=== PATIENT | female | born 1950 | race Caucasian/White ===

== ENCOUNTER 2022-01-22 10:32 | Outpatient (CLI) | payer MEDICARE, BC, SELFPAY ==
--- NOTE | 2022-01-22 11:00 | CRLHL7_ITS ---
For Patients: As a result of the Century Cures Act, medical imaging exams and procedure reports are released immediately into your electronic medical record. You may view this report before your referring provider. If you have questions, please contact your health care provider. Indication: Technique: Performed without IV contrast Comparison: None available Findings: Frontal sinuses: Clear. Ethmoid sinuses: Clear. Maxillary sinuses: Mucous retention cyst measuring 1.4 cm within the right maxillary sinus. Mild mucosal thickening within both maxillary sinuses. The maxillary sinus drainage pathways are patent on both sides. Sphenoid sinuses: Clear, including both sphenoethmoidal recesses. Nasal Cavity: Slight curvature of the nasal septum. No nasal polyps. Degenerative changes at the temporomandibular joints. Clear mastoid air cells. Incidental prefrontal scalp soft tissue calcifications. Impression: 1. Mild bilateral maxillary sinus disease. 2. Patent sinus drainage pathways bilaterally. Please note that all CT scans at this facility use dose modulation, iterative reconstruction, and/or weight-based dosing when appropriate to reduce radiation dose to as low as reasonably achievable. Dictated by Mando Miller MD @ 01/22/2022 12:25:19 PM (Electronically Signed)
== END 2022-01-22 10:33 | disposition home or self-care (01) ==
LOC: CT 10:34
PROVIDERS: Visit Provider Otolaryngology
DX: J32.9 Chronic sinusitis, unspecified (principal); J32.0 Chronic maxillary sinusitis
CPT/HCPCS: 70486

== ENCOUNTER 2023-01-26 09:58 | Outpatient (CLI) | payer MEDICARE, BC, SELFPAY ==
--- NOTE | 2023-01-26 10:15 | CRLHL7_ITS ---
For Patients: As a result of the Century Cures Act, medical imaging exams and procedure reports are released immediately into your electronic medical record. You may view this report before your referring provider. If you have questions, please contact your health care provider. Indication: Lumbar radiculopathy, left-sided. Technique: Multisequence multiplanar MRI of the lumbar spine without contrast. Comparison: None available. Findings: 2 mm anterolisthesis of L4 on L5. Vertebral body heights are maintained. Bone marrow signal intensity is within normal limits. There is multilevel intervertebral disc height loss most pronounced at L3-L4. The conus medullaris terminates normally at the lower L1 level. The paraspinal soft tissues are unremarkable in appearance. Evaluation of the individual levels demonstrates: T12-L1: No significant spinal canal or neural foraminal stenosis. L1-L2 and L2-3: Shallow symmetric disc bulging. No significant spinal canal or neural foraminal stenosis. L3-L4: Mild spinal canal stenosis and bilateral neural foraminal narrowing from facet joint hypertrophy and symmetric disc bulging. L4-L5: Mild spinal canal stenosis predominantly from facet joint hypertrophy. No significant neural foraminal narrowing. L5-S1: No significant spinal canal stenosis. Moderate right and moderate-severe left neural foraminal narrowing from symmetric disc bulging and facet joint hypertrophy. 9 mm synovial cyst projecting posteriorly from the left facet joint. Impression: 1. Multilevel spondylosis with grade 1 L4-5 anterolisthesis and intervertebral disc height loss most pronounced at L3-L4. 2. At L3-L4, mild spinal canal stenosis and mild bilateral neural foraminal narrowing. 3. At L4-L5, mild spinal canal stenosis. 4. At L5-S1, moderate right neural foraminal narrowing, moderate-severe left neural foraminal narrowing, and 9 mm synovial cyst projecting posteriorly from the left facet joint. Dictated by Jarod Savage MD @ 01/26/2023 2:30:57 PM (Electronically Signed)
--- NOTE | 2023-01-26 15:56 | ED.GENADULT ---
HPI - General Adult Related Data Home Medications Medication Instructions Recorded Confirmed omeprazole 20 mg tablet,delayed 20 mg PO QDAY PRN 01/24/23 01/24/23 release Allergies Allergy/AdvReac Type Severity Reaction Status Date / Time cefaclor [From [facility]] Allergy Unknown Verified 01/24/23 12:28 [facility] Medical History (Updated 01/24/23 @ 12:57 by Homer Lewis MD) Neck pain ?M54.2 - Cervicalgia (ICD-10) Back pain ?M54.9 - Dorsalgia, unspecified (ICD-10) Skin problem ?L98.9 - Disorder of the skin and subcutaneous tissue, unspecified (ICD-10) Anxiety ?F41.9 - Anxiety disorder, unspecified (ICD-10) GERD (gastroesophageal reflux disease) ?K21.9 - Gastro-esophageal reflux disease without esophagitis (ICD-10) Surgical History (Updated 01/24/23 @ 12:31 by Heaven Jimenez ~ RN, RN) History of hysterectomy ?Z90.710 - Acquired absence of both cervix and uterus (ICD-10) Family History (Updated 01/24/23 @ 12:31 by Heaven Jimenez ~ RN, RN) Other Pancreatic cancer Stroke Social History Smoking Status: Never smoker Medical Decision Making MDM Narrative Medical decision making narrative: Addendum to the note from prior. The patient has an lumbar MRI scan that shows L5-S1 lateral changes on the left, moderate to severe lateral stenosis, she has a 9 mm synovial cyst. Rivera other degenerative changes throughout a little bit of stenosis at L3-4 centrally, but she is not a surgical candidate this time. I think at this point might make sense to do medics program, followed by a potential injection at the transforaminal L5-S1 level to see if that synovial cyst could be ruptured as well as cortisone injected. She has not tolerated cortisone well in the past I think maybe doing the medics for CV gives relief would be helpful. If the cortisone injection then would not be helpful we could do surgical consultation although she is not interested in that as but a last resort. Discharge Plan Discharge Disposition: Home, Self-Care Primary Care Provider: Provider,Not a Local Activity Restrictions/Additional Instructions: Patient verbalized understanding of reviewed discharge instructions. Discharge Medications: No Action omeprazole 20 mg tablet,delayed release (DR/EC) 20 mg PO QDAY PRN
== END 2023-01-26 09:59 | disposition home or self-care (01) ==
LOC: MRI 09:59
PROVIDERS: Visit Provider Family Medicine
DX: M54.16 Radiculopathy, lumbar region (principal); M47.896 Other spondylosis, lumbar region; M48.061 Spinal stenosis, lumbar region without neurogenic claudication; M51.27 Other intervertebral disc displacement, lumbosacral region; M79.605 Pain in left leg
CPT/HCPCS: 72148; 99281

== ENCOUNTER 2023-09-20 14:27 | Outpatient (CLI) | payer MEDICARE, BC, SELFPAY | END 2023-09-20 14:28 | disposition home or self-care (01) | PROVIDERS: PCP Family Medicine; Visit Provider Family Medicine | DX: Z13.220 Encounter for screening for lipoid disorders (principal); Z11.59 Encounter for screening for other viral diseases | CPT/HCPCS: 80061; 86803 ==

== ENCOUNTER 2023-09-29 10:34 | Outpatient (CLI) | payer MEDICARE, BC, SELFPAY ==
--- NOTE | 2023-09-29 11:00 | CRLHL7_ITS ---
For Patients: As a result of the Century Cures Act, medical imaging exams and procedure reports are released immediately into your electronic medical record. You may view this report before your referring provider. If you have questions, please contact your health care provider. INDICATION: Lung cancer screening. History of smoking. TECHNIQUE: Low-dose lung cancer screening non-contrast CT chest. Dose reduction techniques were used. COMPARISON: None. FINDINGS: NODULES: 3 millimeter calcified nodule at the right lung apex. 2 millimeter nodule in the right mid lung, series 3, image 63. Additional calcified nodule in the right middle lobe. A 3rd calcified nodule within the right lung also noted laterally. Right lower lobe calcified nodule. LUNGS AND PLEURA: Emphysema. MEDIASTINUM: No adenopathy. Intact breast implants. CORONARY ARTERY CALCIFICATION: None. LIMITED UPPER ABDOMEN: Atherosclerotic changes in the aorta. MUSCULOSKELETAL: Degenerative changes. No fracture. IMPRESSION: Tiny right-sided nodules, most of which are calcified, measuring 3 millimeters or less. LUNG-RADS CATEGORY: 2: Benign. RADIOLOGIST RECOMMENDATION: Continue annual screening with low-dose CT chest in 12 months. Please note that all CT scans at this facility use dose modulation, iterative reconstruction, and/or weight-based dosing when appropriate to reduce radiation dose to as low as reasonably achievable. Dictated by Mando Miller MD @ 09/29/2023 3:57:22 PM (Electronically Signed)
== END 2023-09-29 10:35 | disposition home or self-care (01) ==
LOC: CT 10:35
PROVIDERS: PCP Family Medicine; Visit Provider Family Medicine
DX: Z12.2 Encounter for screening for malignant neoplasm of respiratory organs (principal); R91.8 Other nonspecific abnormal finding of lung field; Z87.891 Personal history of nicotine dependence; Z72.0 Tobacco use
CPT/HCPCS: 71271

== ENCOUNTER 2023-09-30 09:59 | Outpatient (CLI) | payer MEDICARE, BC, SELFPAY ==
--- NOTE | 2023-09-30 10:51 | W.ANESCHARGE ---
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
== END 2023-09-30 10:00 | disposition home or self-care (01) ==
LOC: OP CLINIC 09:59
PROVIDERS: PCP Family Medicine; Visit Provider Internal Medicine
DX: Z12.11 Encounter for screening for malignant neoplasm of colon (principal); K63.5 Polyp of colon; K64.8 Other hemorrhoids; Z86.010 Personal history of colon polyps; K22.70 Barrett's esophagus without dysplasia
CPT/HCPCS: 00813; 43239; 45380; 45385; 88305; 99100; J2704

== ENCOUNTER 2024-10-02 13:45 | Outpatient (CLI) | payer MEDICARE, BC, SELFPAY ==
--- OUTSIDE RECORDS SUMMARY | 2024-09-24 12:52 | XMS_ITS | Continuity of Care Document ---
Author Organization [facility] Address [address] [place] [address] Phone Care Team Providers Care Revenue Enforcement Collection Agent Name Role Phone No Information Unavailable Unavailable Advance Directives Directive Yes / No Effective Date File Name No Information Encounters Encounter Description Practice Location Reason(s) For Visit Diagnoses Date Provider Providers Copied on Encounter [facility], [address], [place], [place], [id number], [place] tel:[phone] No Information No Information Family History Family Member Type Diagnosis Age At Onset No Information Payers Payer name Insurance type Covered republican ID Authoriza tion(s) No Information Social History Type Description Quantity Date Captured Comments Sex Female Smoking Status No Information Chief Complaint And Reason For Visit No Information Reason For Referral Reason For Referral No Information History Of Present Illness Encounter Date Complaint History Of Prese nt Illness No Information Functional Status Date Functional Assessmen t No Information Instructions Date Instruction Additional Infor mation No Information Assessments Type Assessment Date No Information Patient Care Teams Name Effective Dates (start - stop) Status Members No Information
--- NOTE | 2024-10-02 14:00 | CRLHL7_ITS ---
For Patients: As a result of the Century Cures Act, medical imaging exams and procedure reports are released immediately into your electronic medical record. You may view this report before your referring provider. If you have questions, please contact your health care provider. INDICATION: Lung cancer screening. History of smoking. High risk patient with greater than 22 pack-year smoking history. TECHNIQUE: Low-dose lung cancer screening non-contrast CT chest. Dose reduction techniques were used. COMPARISON: 09/29/2023 FINDINGS: NODULES: Tiny 3 millimeter or less calcified and noncalcified nodules within the right lung are unchanged. Incidental calcified granuloma in the left lung apex. New nodule. LUNGS AND PLEURA: Mild pleural-parenchymal scarring in both lung apices. MEDIASTINUM: Bilateral breast implants. Stable calcification in the right anterior chest. No adenopathy. CORONARY ARTERY CALCIFICATION: None. LIMITED UPPER ABDOMEN: Vascular calcifications MUSCULOSKELETAL: Discogenic spurring. IMPRESSION: Negative for lung cancer screening purposes. LUNG-RADS CATEGORY: 2: Benign. RADIOLOGIST RECOMMENDATION: Continue annual screening with low-dose CT chest in 12 months. Please note that all CT scans at this facility use dose modulation, iterative reconstruction, and/or weight-based dosing when appropriate to reduce radiation dose to as low as reasonably achievable. Dictated by Mando Miller MD @ 10/03/2024 9:42:03 AM (Electronically Signed)
--- OUTSIDE RECORDS SUMMARY | 2024-10-03 00:37 | XMS_ITS | Clinical Summary ---
Author Organization [facility] Address [address] [place] [address] Care Team Providers Care Manager Environmental Health Name Role Phone Darlene Fitzgerald M.D. Primary Care Pro vider Source Comments Patient records contain information from all sites at [facility]. For routine questions regarding patient records, call [phone] during business hours, M-F 8:00 AM - 5:00 PM Central Time. Record requests for emergency care only can be directed to [phone] at any time.[facility] Allergies Active Allergy Reactions Criticality Noted Date Comments Cefaclor Hives (Reselect Reaction) Medium 07/19/2012 Ketamine Hallucinations Medium 12/15/2017 Combative Pseudoephedrine Hcl Palpitations Medium 08/23/2016 Tachycardia Medications * This document contains information received from the source organization and may not represent a complete record from that organization. LACTOBACILLUS ACIDOPHILUS (PROBIOTIC ORAL) Take 1 capsule by mouth daily. 4 Active cholecalciferol (for_VITAMIN D3) 2,000 Unit tablet Take 1 tablet by mouth daily. 4 Active magnesium oxide 500 mg tablet Take 1 tablet by mouth daily. 4 Active MULTIVITAMIN WITH MINERALS ORAL Take by mouth daily. 4 Active HYPROMELLOSE (SYSTANE GEL OPHT) Systane See Instructions, Apply to eye as needed Each eye , PRN: Other - per symptoms 4 Active omeprazole (for_PriLOSEC) 20 mg capsule Take 1 capsule by mouth daily. 7 Active clobetasoL (TEMOVATE) 0.05 % external solution APPLY THIN LAYER TO AFFECTED AREA ON SCALP. 1-2X DAILY FOR 2 WEEKS TAKE A BREAK FOR 2 WEEKS REPEAT NEEDED FOR FLARES 2 Active metroNIDAZOLE (METROCREAM) 0.75 % cream APPLY THIN LAYER TO FACE 1-2X DAILY 2 Active Active Problems Problem Noted Date Diagnosed Date Depression Major One Episode Moderate 12/18/2021 Radiculopathy Cervical 12/14/2019 Spondylosis Cervical Without Myelopathy 12/14/19 20 Cyst Pancreas 08/05/2018 Overview (08/05/2018): 6 mm in body of pancreas based on CT enterography July 2018. Stable from CT in Feb 2017. Recommended f/u MRI or CT in 2 years (July 2020) Kendall's Esophagus 06/19/2018 Overview (06/19/2018): Added automatically from request for surgery [id number] Anxiety 03/15/2018 Mass Finger Left 02/08/2018 Overview (02/08/2018): Added automatically from request for surgery [id number] Pain Abdominal Chronic 05/11/2017 Overview (05/11/2017): Added automatically from request for surgery [id number] Abuse Tobacco Smoking 02/09/2017 Overview (07/18/2017): per External Record info - 02/07/2017 After Cataract Membrane Vision Obscured Right Beat Premature Ventricular 12/16/2016 Numbness 07/06/2016 Regurgitation Tricuspid 2015 Overview (02/10/2018): onset unknown Varicose Vein Lower Extremity Left 11/05/2014 Floater Vitreous Bilateral 07/26/2014 Overview (07/18/2017): onset unknown Dry Eye Syndrome Bilateral 07/26/2014 Overview (07/18/2017): onset unknown Replacement Intraocular Lens Status Post 014 Overview (07/18/2017): Pseudophakia of right eye Reflux Esophageal 02/28/2013 Overview (07/18/2017): onset unknown Tremor Essential 02/28/2013 Overview (02/10/2018): onset unknown Other Specified Postprocedural States 01/13/2012 Intraocular Lens Implant Status Post 10/23/2010 Resolved Problems Problem Noted Date Diagnosed Date Resolved Date Weakness Arm Left 12/18/2021 12/18/2021 Abnormal Computed Tomography Abdomen 05/11/2017 07/18/2017 Overview (05/11/2017): Added automatically from request for surgery [id number] Dependence Nicotine 11/26/2016 07/19/19 18 Cataract Senile Nuclear Sclerosis Bilateral 08/07/2010 02/10/2018 Immunizations Immunization Administration Dates Next Due H1N1 All Forms 03/04/2009 HZV (ZOSTAVAX) 03/10/2015 Influenza Whole 01/16/2016 Influenza, Seasonal, Injectable 01/21/20 12,01/23/2010,02/10/2008,2004 Influenza, Unspecified 02/11/2017,2015,03/10/2015,2013,02/12/2013,01/12/2013 PCV13 01/03/2019(Deferred: Patient ill today) PPSV23 01/20/2021,01/08/2011 SARS-COV-2 (COVID-19) - ROSE MARIE ZHENG (J&J)(Discontinued) 06/16/2020 Tdap 01/20/2021,10/10/2009,03/04/2009 influenza trivalent high dos e (HD)(PF) 02/13/2019,02/10/2018,01/02/2016 Family History Medical History Relation Name Comments Heart disease Father Hypertension Father Macular degeneration Father Stroke Father Liver failure Mother Anesthesia problems Neg Hx Cataracts Neg Hx Diabetes Neg Hx Glaucoma Neg Hx Relation Name Status Comments Father Mother Social History Tobacco Use Types Packs/Day Years Used Date Smoking Tobacco: Every Day Cigarettes Smokeless Tobacco: Never Tobacco Cessation:Ready to Q uit: Not Asked; Counseling Given: Not Answered Alcohol Use Standard Drinks/Week Comments Yes 7 (1 standard drink = 0.6 oz pur e alcohol) daily Humiliation, Afraid, Rape, and Kick questionnair e Answer Date Recorded Within the last year, have y ou been afraid of your partner or ex-partner? No 12/18/2021 Within the last year, have y ou been humiliated or emotionally abused in other ways by your partner or ex-partner? No Within the last year, have y ou been kicked, hit, slapped, or otherwise physically hurt by your partner or ex-partner? No 12/18/2021 Within the last year, have y ou been raped or forced to have any kind of sexual activity by your partner or ex-partner? No 12/18/2021 Hunger Vital Sign Answer Date Recorded Within the past 12 months, y ou worried that your food would run out before you got the money to buy more. Never true 03/08/20 23 Within the past 12 months, t he food you bought just didn't last and you didn't have money to get more. Never true 03/08/2023 PRAPARE - Transportation Answer Date Re corded In the past 12 months, has l ack of transportation kept you from medical appointments or from getting medications? No 02/10 In the past 12 months, has l ack of transportation kept you from meetings, work, or from getting things needed for daily living? No 03/08/2023 Depression Answer Date Recor ded PHQ-9 Total Score (max 27) 6 10/27 Housing Stability Answer Date Recorded What is your living situation today? I have a [facility] place to live 03/08/2023 Education Answer Date Recorded What is the highest level of school you have completed or the highest degree you have received? Doctorate 12/18/2021 Comments No Sex and Gender Information Value Date Recorded Sex Assigned at Female 03/08/2023 5:54 PM PATTERN HAND Legal Sex Female 2:46 PM PATTERN HAND Gender Identity Female 02/14/2017 3:19 PM PATTERN HAND Sexual Orientation Straight 02/10/2020 7: 14 AM PATTERN HAND Last Filed Vital Signs Vital Sign Reading Time Taken Comments Blood Pressure 117/78 03/10/2023 10:55 AM PATTERN HAND Pulse 81 03/10/2023 10:55 AM PATTERN HAND Temperature 37 C (98.6 F) 03/10/2023 10:55 AM PATTERN HAND Respiratory Rate 12 03/10/2023 10:5 5 AM PATTERN HAND Oxygen Saturation 98% 03/10/2023 10: 55 AM PATTERN HAND Inhaled Oxygen Concentration - - Weight 60.2 kg (132 lb 11.5 oz) 023 10:55 AM PATTERN HAND Height 169 cm (5' 6.54) 03/10/2023 10: 55 AM PATTERN HAND Body Mass Index 21.08 03/10/2023 10:55 AM PATTERN HAND Plan of Treatment Health Maintenance Due Date Last Done Comments CT Colonography 1950 Cologuard 1950 Hepatitis C Screening 1950 Visit: Medicare Annual Wellness 1950 Zoster Vaccines (2 of 3) 05/05/2015 03/10/2015 Tobacco Cessation counseling 01/31/2021 02/01/2020 Pneumococcal vaccine (50+ years) (2 of 2 - PCV) 01/20/2022 01/20/2021, 01/08/2011 Colonoscopy 05/24/2022 05/24/2017, 2008 Colorectal Cancer Surveillance 05/24/2022 Mammogram 06/15/2022 06/15/2021, 11/2019, 12/06/2017, Additional history exists Depression Monitoring (PHQ-9) 02/27/2023 10/27/2022 COVID-19 Vaccine ( - season) 2023 02/13/2021, 06/16/2020 Influenza Vaccine (#1) 2024 , 02/13/2019, 02/10/2018, Additional history exists Visit: Annual, age 65+ (or Medicare and <65) 03/10/2024 03/10/2023 Depression Monitoring (PHQ-9 for quality tracking) 04/11/2024 Fall Risk Screen (Annual) 04/11/2024 Fasting Glucose for Diabetes Screening 03/10/2026 03/10/2023, 01/20/2021, 12/06/2019, Additional history exists DTaP,Tdap,and Td Vaccines (4 - Td or Tdap) 01/20/2031 01/20/2021, 10/10/2009, 03/04/2009 IPV Vaccines Aged Out No longer eligi ble based on patient's age to complete this topic Medical Devices Implanted Type Area Flight Communications 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 Body Location - Right. Device Status Text - [id number]. Ocular Lens-01/05/2013 Implanted:01/05 (Quantity not on file) Ocular Lens Eye Procedures Procedure Name Priority Date/Time Associated Diagnosis Comments BASIC METABOLIC PANEL, S/P Routine 03/10/2023 12:02 PM PATTERN HAND Preoperative Exam OUTSIDE MG MAMMOGRAM Routine 06/15/2021 10:30 AM PATTERN HAND COLONOSCOPY 05/24/2017 8:51 AM PATTERN HAND from Last 3 Months or Most Recently Relevant to Health Maintenance Results * Basic Metabolic Panel (03/10/2023 12:02 PM PATTERN HAND) Potassium, P 4.4 3.6 - 5.2 mmol/L 03/10/2023 12:43 PM PATTERN HAND CNFL Sodium, P 135 135 - 145 mmol/L 03/10/2023 12:43 PM PATTERN HAND CNFL Chloride, P 102 98 - 107 mmol/L 03/10/2023 12:43 PM PATTERN HAND CNFL Bicarbonate, P 26 22 - 29 mmol/L 03/10/2023 12:43 PM PATTERN HAND CNFL Anion Gap, P 7 7 - 15 03/10/2023 12:43 PM PATTERN HAND CNFL BUN (Blood Urea Nitrogen), P 17 6 - 21 mg/dL 03/10/2023 12:43 PM PATTERN HAND CNFL Creatinine 0.87 0.59 - 1.04 mg/dL 03/10/2023 12:43 PM PATTERN HAND CNFL Estimated GFR (eGFR) 71 >=60 mL/min/BSA 03/10/2023 12:43 PM PATTERN HAND CNFL Comment: Estimated GFR calculated using the 2020 CKD_EPI creatinine equation. Calcium, Total, P 9.1 8.8 - 10.2 mg/dL 03/10/2023 12:43 PM PATTERN HAND CNFL Glucose, P 101 70 - 140 mg/dL 03/10/2023 12:43 PM PATTERN HAND CNFL Blood (Blood, Venous) 03/10/2023 12:02 PM PATTERN HAND 03/10/2023 12:03 PM PATTERN HAND us Cynthia Robert APRN, C.N.P. LAB BLOOD ADD-ON Shirlene l Result Performing Organization Address [facility] Co de Phone Number [facility] [address] [place] [address], [facility] [place] [address] * Mammo Digital Screen Fernandez W/Imp W CAD 3D(Bilateral)-Outside Mammogram (06/15/2021 10:30 AM PATTERN HAND) 06/15/2021 10:2 7 AM PATTERN HAND Narrative [facility] - 06/15/2021 11:07 AM PATTERN HAND This order has been created and auto-finalized to support the import of outside images. If available, original interpretation can be found on the Media Tab in Chart Review, in Document Viewer, or as an image in QREADS. If a re-interpretation or overread is required please follow defined workflow. us Provider Not In System IMG BI PROCEDURES Final R esult Performing Organization Address [facility] Co de Phone Number [facility] NA * COLONOSCOPY (05/24/2017 8:51 AM PATTERN HAND) Narrative Procedure Note David Goodrich M.D. - 05/24/2017 8:51 AM CST [facility] Patient Name: Karin Diaz Procedure Date: 05/24/2017 8:51 AM Date of : 1950 Age: 66 Gender: Female Procedure: Colonoscopy Providers: David Goordich David Goodrich (Ordering Provider) Referring Provider: David Goodrich Pre-op Diagnoses: Abdominal pain Post-op Diagnoses: - One 5 mm polyp in the ascending colon, removed with a cold snare. Resected and retrieved. - One 2 mm polyp in the transverse colon, removed with a cold snare. Complete resection. Polyp tissue not retrieved. - One 4 mm polyp in the sigmoid colon, removed with a cold snare. Resected and retrieved. - Two 3 to 4 mm polyps in the rectum, removed with a cold snare. Resected and retrieved. - The examined portion of the ileum was normal. - The distal rectum and anal verge are normal on retroflexion view. Recommendation: - Repeat colonoscopy in 5 years for surveillance. - Await pathology results. Findings: The perianal and digital rectal examinations were normal. A 5 mm polyp was found in the ascending colon. The polyp was sessile. The polyp was removed with a cold snare. Resection and retrieval were complete. A 2 mm polyp was found in the transverse colon. The polyp wassessile. The polyp was removed with a cold snare. Resection was complete, butthe polyp tissue was not retrieved. A 4 mm polyp was found in the sigmoid colon. The polyp was sessile.The polyp was removed with a cold snare. Resection and retrieval were complete. Two semi-sessile polyps were found in the rectum. The polyps were 3to 4 mm in size. These polyps were removed with a cold snare. Resectionand retrieval were complete. The terminal ileum appeared normal. The retroflexed view of the distal rectum and anal verge was normaland showed no anal or rectal abnormalities. Medicines: Fentanyl 100 micrograms IV, Midazolam 4 mg IV Complications: No immediate complications. Procedure Details: The patient was seen, evaluated, and history reviewed. Airway and heart and lung exams were performed and were satisfactory for plannedsedation care. The risks, benefits and alternatives for the procedure and sedation were discussed andinformed consent was obtained. A procedural pause was conducted in the presence of assisting personnelto verify the correct patient identity and procedureto be performed. Throughout the procedure, the patient's blood pressure, pulse, and oxygen saturations were monitored continuously. The Colonoscope was introduced under directvision through the anus and advanced to 10 cm into the ileum. The colonoscopy was performed without difficulty. The patient tolerated the procedure well. The quality of the bowel preparation wasgood. Sedation: Moderate (conscious) sedation was administered by the endoscopy nurse and supervised by the endoscopist. The following parameters were monitored: oxygen saturation, heart rate, blood pressure, andresponse to care. Total physician intraservice time was 29 minutes. Attending Participation: I was present and participated during the entire procedure, including non-verde portions. David Goodrich, 05/24/2017 10:06:26 AM This report has been signed electronically. Number of Addenda: 0 Note Initiated On: 05/24/2017 8:51 AM David Goodrich M.D. GI PROCEDURE ORDERABLES Fi nal Result from Last 3 Months or Most Recently Relevant to Health Maintenance Insurance [facility] MEDICARE Advance Directives For more information, please contact: [phone] * Full Code (Latest Code Status on File) Date Activated Date Inactivated Comments 07/11/2018 1:25 PM 07/11/2018 3:38 PM Question Answer Comments Full Code: Discussed * Full Code Date Activated Date Inactivated Comments 02/15/2018 2:59 PM 02/15/2018 6:25 PM Question Answer Comments Full Code: Not Discussed Due to: Patient not available * Full Code Date Activated Date Inactivated Comments 05/24/2017 10:13 AM 05/24/2017 12:40 PM Question Answer Comments Full Code: Discussed * Full Code Date Activated Date Inactivated Comments 05/24/2017 9:03 AM 05/24/2017 10:13 AM Question Answer Comments Full Code: Discussed Care Teams Manager Environmental Health Relationship Specialty Start Date End Date Darlene Fitzgerald M.D. [address] [place] [phone] PCP - General Family Medicine 01/11/19
--- OUTSIDE RECORDS SUMMARY | 2024-10-03 00:37 | XMS_ITS | Encounter Summary ---
Author Organization [facility] Address [address] [place] [address] Care Team Providers Care Laborer [employer] Name Role Phone Darlene Fitzgerald M.D. 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 Pires on October 23, 2010. A report time of 10am was given to patient. Brochure and instructions given to patient. [phone] CD Reports - EYESV Id: [id number] Status: Fnl documented in this encounter Plan of Treatment Not on file documented as of this encounter Visit Diagnoses Not on filedocumented in this encounter Care Teams Laborer [employer] Relationship Specialty Start Date End Date Darlene Fitzgerald M.D. [id number] [phone] PCP - General Family Medicine 01/11/19 documented as of this encounter
--- OUTSIDE RECORDS SUMMARY | 2024-10-03 00:37 | XMS_ITS | Clinical Summary ---
Author Organization [employer] Address [address] [place] [address] Care Team Providers Care Vulcanizer Operator Name Role Phone Pcp, No Primary Care Provider Unavailabl e Allergies Active Allergy Reactions Criticality Noted Date Comments Cefaclor Hives 01/18/2006 Medications CENTRUM SILVER TAB take 1 tablet by oral route once daily 0 9 Active omeprazole magnesium (PRILOSEC ORAL) Take by mouth. Active diazePAM (VALIUM) 2 mg tabletIndications :Spinal stenosis, lumbar region with neurogenic claudication Take 1 Tablet (2 mg) by mouth every 6 hours if needed for Muscle Spasm. 20 Tablet 03/14/2023 3:52 PM CAREER PORTALS TEACHER 3 Active oxyCODONE (ROXICODONE) 5 mg immediate release tabletIndications :Spinal stenosis, lumbar region with neurogenic claudication Take 1-2 Tablets (5-10 mg) by mouth every 4 hours if needed for Pain. 20 Tablet 03/14/2023 3:52 PM CAREER PORTALS TEACHER 3 Active clobetasol 0.05% TOPICAL (TEMOVATE) 0.05 % external solution APPLY THIN LAYER TO AFFECTED AREA ON SCALP. 1-2X DAILY FOR 2 WEEKS TAKE A BREAK FOR 2 WEEKS REPEAT NEEDED FOR FLARES 2 Active gabapentin (NEURONTIN) 300 mg capsuleIndication s:Lumbar radiculopathy,H/O lumbosacral spine surgery Take 1 Capsule (300 mg) by mouth at bedtime. 30 Capsule 2 4 Active Immunizations Immunization Administration Dates Next Due Influenza A (H1N1), Inactivated (Age >=3 Years) 03/04/2009 Influenza, IIV3 (Age >=3 years) 02/10/2008 Tdap 03/04/2009 Tuberculin (PPD) 03/04/2009 Social History Tobacco Use Types Packs/Day Years Used Date Smoking Tobacco: Every Day Cigarettes 0.3 30 Smokeless Tobacco: Never Tobacco Cessation:Ready to Q uit: Yes; Counseling Given: Yes Comments:less than 1/2 pack per day. Alcohol Use Standard Drinks/Week Comments Yes 5.8 (1 standard drink = 0.6 oz p ure alcohol) Social Connections Answer Date Recorded Frequency of Communication with Friends and Fami ly Not on file 05/05/2023 Comments No Sex and Gender Information Value Date Recorded Sex Assigned at Not on file Legal Sex Female 6:13 AM CAREER PORTALS TEACHER Gender Identity Not on file Sexual Orientation Not on file Obstetrics History Last Filed Vital Signs Vital Sign Reading Time Taken Comments Blood Pressure 126/84 05/05/2023 2:03 PM CAREER PORTALS TEACHER Pulse 83 05/05/2023 2:03 PM CAREER PORTALS TEACHER Temperature 36.8 C (98.2 F) 05/05/2023 2:03 PM CAREER PORTALS TEACHER Respiratory Rate 16 03/14/2023 3:38 PM CAREER PORTALS TEACHER Oxygen Saturation 99% 05/05/2023 2:03 PM CAREER PORTALS TEACHER Inhaled Oxygen Concentration - - Weight 60.8 kg (134 lb) 05/05/2023 2:03 PM CAREER PORTALS TEACHER s hoes on Height 167 cm (5' 5.75) 03/14/2023 12:26 PM CAREER PORTALS TEACHER Body Mass Index 21.79 03/14/2023 12:26 PM CAREER PORTALS TEACHER Plan of Treatment Health Maintenance Due Date Last Done Comments Depression screening for age 12+ 1962 BMI (ht and wt on same day) for age 18+ 1968 Hepatitis C screening for ag e 18-79 1968 Pneumococcal series for age 50+ (1 of 2 - PCV) 1969 Colonoscopy through age 75 06/10/1995 Lipids for age 45-75 06/10/1995 Zoster (shingles) series for age 50+ (1 of 2) 2000 Mammogram for age 45-75 07/16/2008 07/17/19 08, 11/06/2004 DEXA/DXA scan for age 65+ 06/10/2015 Medicare Wellness for age 65+ 06/10/2015 Tetanus booster 03/04/2019 03/04/2009 COVID-19 vaccine series ( season) 2023 02/13/2021, 06/16/2020 Influenza Vaccine (Season Ended) 2024 02/10/2008 RSV vaccine for adults or (1 - 1-dose 75+ series) 2025 Tdap Completed 03/04/2009 Hepatitis B series for 19+ Aged Out N o longer eligible based on patient's age to complete this topic Procedures Procedure Name Priority Date/Time Associated Diagnosis Comments XR MAMMO BILAT DIAG FFDM W SIMÓN (IA) Routine 07/17/2007 9:36 AM CDT Lump Or Mass In Breast from Last 3 Months or Most Recently Relevant to Health Maintenance Results * XR MAMMO BILAT DIAG FFDM W SIMÓN (07/17/2007 9:36 AM CDT) MAMMOGRAM ACR 2 Benign Finding Anatomical Region Laterality Modality BREASTS, Breast Left, Breast Right Bilateral Mammography 07/17/2007 9:36 AM CDT Impressions 07/18/2007 11:58 AM CDT 1. Lumps palpated in the right upper outer quadrant and in the superomedial left breast/chest wall are likely related to free silicone. It was recommended that the patient consult a surgeon regarding the upper inner quadrant mass on the left. She wishes to have this excised for cosmetic regions. No abnormality suspicious for malignancy can be appreciated. 2. Routine screening annually is recommended. The [facility] will provide a results postcard to the patient at the time of the appointment or through the mail. This mammogram was interpreted in conjunction with computer-aided detection and obtained using full field digital technique. ACR 2 Benign Finding Sandie Buitrago MD Breast Radiologist [facility] Narrative 07/18/2007 11:58 AM CDT DIAGNOSTIC BILATERAL FULL FIELD DIGITAL MAMMOGRAM AND BILATERAL ULTRASOUND 07/17/07 CLINICAL HISTORY: The patient is a 57-year-old woman who presents for evaluation of a left parasternal lump. The patient states that this has been here for about 2 years but has increased in size over that time. She also requests evaluation of lump in the right upper outer quadrant/axilla. This also has been present for some time. The patient has had benign surgical biopsy in the past. She underwent augmentation mammoplasty several years ago and had implants replaced 2-3 years ago. She states the original implants which were silicone, were replaced because they were encapsulated and because they had leaked silicone. The current mammogram is compared with the previous study of 11/06/04. The patient has not had a more recent study. FINDINGS: Routine and implant displacement views were obtained. The implants appear to be subpectoral. The current implants are different than the ones present on the previous mammogram. There is scattered fibroglandular thickening. Mild architectural distortion is seen far posteriorly. This presumably relates to previous surgeries and is more apparent on the left than right. This has become more apparent, but there has been a procedure in the interim since the previous exam. No new breast mass is seen. The left parasternal lump is not included on the mammograms because of its central location. The triangular marker indicating the location of the palpable concern on the right in the upper outer quadrant is included on the oblique view and no underlying abnormality can be appreciated. There are coarse calcifications but no suspicious microcalcifications are identified. Both breasts are evaluated with ultrasound. On the right, there are several nodes seen in the right axilla. Some demonstrate normal morphology. There are several containing at least focal areas of increased echogenicity with shadowing consistent with silicone. The largest of these is located at 10:30, 7 cm from the nipple, corresponds to the area of palpable concern. This node measures 0.8 x 1.1 x 2.0 cm. On the left, the lump is located at about 10 o'clock, 9 cm from the nipple. In this area, there is a broad area of densely echogenic tissue demonstrating marked shadowing. This area spans about 4.0 x 4.0 x 1.8 cm and is consistent with structure containing silicone. This could represent an enlarged internal mammary node. Procedure Note Nayana Velez MD - 07/18/2007 DIAGNOSTIC BILATERAL FULL FIELD DIGITAL MAMMOGRAM AND BILATERAL ULTRASOUND07/17/07 CLINICAL HISTORY: The patient is a 57-year-old woman who presents forevaluation of a left parasternal lump. The patient states that this hasbeen here for about 2 years but has increased in size over that time. [place]also requests evaluation of lump in the right upper outer quadrant/axilla.This also has been present for some time. The patient has had benignsurgical biopsy in the past. She underwent augmentation mammoplastyseveral years ago and had implants replaced 2-3 years ago. She states theoriginal implants which were silicone, were replaced because they wereencapsulated and because they had leaked silicone. The current mammogramis compared with the previous study of 11/06/04. The patient has not had kierra recent study. FINDINGS: Routine and implant displacement views were obtained. The implants appearto be subpectoral. The current implants are different than the onespresent on the previous mammogram. There is scattered fibroglandular thickening. Mild architecturaldistortion is seen far posteriorly. This presumably relates to previoussurgeries and is more apparent on the left than right. This has becomemore apparent, but there has been a procedure in the interim since theprevious exam. No new breast mass is seen. The left parasternal lump isnot included on the mammograms because of its central location. Thetriangular marker indicating the location of the palpable concern on theright in the upper outer quadrant is included on the oblique view and nounderlying abnormality can be appreciated. There are coarse calcificationsbut no suspicious microcalcifications are identified. Both breasts are evaluated with ultrasound. On the right, there areseveral nodes seen in the right axilla. Some demonstrate normalmorphology. There are several containing at least focal areas of increasedechogenicity with shadowing consistent with silicone. The largest of theseis located at 10:30, 7 cm from the nipple, corresponds to the area ofpalpable concern. This node measures 0.8 x 1.1 x 2.0 cm. On the left, the lump is located at about 10 o'clock, 9 cm from thenipple. In this area, there is a broad area of densely echogenic tissuedemonstrating marked shadowing. This area spans about 4.0 x 4.0 x 1.8 cmand is consistent with structure containing silicone. This could representan enlarged internal mammary node. IMPRESSION: 1. Lumps palpated in the right upper outer quadrant and in thesuperomedial left breast/chest wall are likely related to free silicone.It was recommended that the patient consult a surgeon regarding the upperinner quadrant mass on the left. She wishes to have this excised forcosmetic regions. No abnormality suspicious for malignancy can beappreciated. 2. Routine screening annually is recommended. The [facility] will provide a results postcard to the patient atthe time of the appointment or through the mail. This mammogram was interpreted in conjunction with computer-aideddetection and obtained using full field digital technique. ACR 2 Benign Finding Sandie Buitrago MD Breast Radiologist [facility] Daniel Camarena MD MAMMO Final Result from Last 3 Months or Most Recently Relevant to Health Maintenance Insurance MEDICARE PART B HB ONLY [employer] [place] [employer] HB ONLY MEDICARE PART A HB ONLY [employer] [place] [employer] MR PB ONLY Advance Directives Documents on File Type Date Recorded Patient Final Tester Expl anation Healthcare Directive 09/13/2008 009 Care Teams Vulcanizer Operator Relationship Specialty Start Date End Date Pcp, No . PCP - General 01/26/23
--- OUTSIDE RECORDS SUMMARY | 2024-10-03 00:37 | XMS_ITS | Encounter Summary ---
Author Organization [facility] Address [address] [place] [address] Care Team Providers Care Microeconomics Professor Name Role Phone Darlene Fitzgerald M.D. Primary Care Pro vider Encounter Details Date Type Department Care Team (Late st Contact Info) Description 03/17/2011 Historical Ophthalmology RST OPH Guicho Pires M.D. [address] [place] [address] Social History Tobacco Use Types Packs/Day Years Used Date Smoking Tobacco: Never Assessed Comments Unknown Sex and Gender Information Value Date Recorded Sex Assigned at Female 03/08/2023 5:54 PM HISTOLOGY TECHNOLOGIST Legal Sex Female 2:46 PM HISTOLOGY TECHNOLOGIST Gender Identity Female 02/14/2017 3:19 PM HISTOLOGY TECHNOLOGIST Sexual Orientation Straight 02/10/2020 7: 14 AM HISTOLOGY TECHNOLOGIST documented as of this encounter Progress Notes * Guicho Pires M.D. - 03/17/2011 9:45 AM CST Eye General CHIEF COMPLAINT follow up macular edema, s/p IOL right eye HISTORY OF PRESENT ILLNESS No improvement noted since last exam, right eye. States left eye vision is better than right eye. No problems reading or sewing, some trouble threading needles. IMPRESSION / REPORT / PLAN #1 right pseudophakia resolved cme. dc gtt. Patient is very happy with residual refractive error. Note previous refractive surgeries with long discussion regarding potential complications with initial refractive outcome. Patient now most unhappy with residual refractive error, particularly at night. Offered eval by cornea specialist in our department which she decline. Asked her to call me at any time if she has further questions or wishes to reconsider seeing cornea specialist for second opinion. DIAGNOSIS #1 right pseudophakia CDM Reports - EYEGEN Id: [id number] Status: Fnl documented in this encounter Plan of Treatment Not on file documented as of this encounter Visit Diagnoses Not on filedocumented in this encounter Care Teams Microeconomics Professor Relationship Specialty Start Date End Date Darlene Fitzgerald M.D. [address] [phone] PCP - General Family Medicine 01/11/19 documented as of this encounter
--- OUTSIDE RECORDS SUMMARY | 2024-10-03 00:37 | XMS_ITS | Encounter Summary ---
Author Organization [facility] Address [address] [place] [address] Care Team Providers Care Single Fold Machine Operator Name Role Phone Darlene Fitzgerald M.D. Primary Care Pro vider Encounter Details Date Type Department Care Team (Late st Contact Info) Description 01/08/2011 Historical Ophthalmology RST OPH Guicho Pires M.D. [address] [place] [address] Social History Tobacco Use Types Packs/Day Years Used Date Smoking Tobacco: Never Assessed Comments Unknown Sex and Gender Information Value Date Recorded Sex Assigned at Female 03/08/2023 5:54 PM CHEMISTRY ASSOCIATE Legal Sex Female 2:46 PM CHEMISTRY ASSOCIATE Gender Identity Female 02/14/2017 3:19 PM CHEMISTRY ASSOCIATE Sexual Orientation Straight 02/10/2020 7: 14 AM CHEMISTRY ASSOCIATE documented as of this encounter Progress Notes * Guicho Pires M.D. - 01/08/2011 3:02 PM CDT Eye Postoperative MULTI-VISIT DOCUMENT This document contains multiple patient visits and is available for review in Document Viewer. CDM Reports - EYEPO Id: [id number] Status: Fnl documented in this encounter Plan of Treatment Not on file documented as of this encounter Visit Diagnoses Not on filedocumented in this encounter Care Teams Single Fold Machine Operator Relationship Specialty Start Date End Date Darlene Fitzgerald M.D. [address] [phone] PCP - General Family Medicine 01/11/19 documented as of this encounter
--- OUTSIDE RECORDS SUMMARY | 2024-10-03 00:37 | XMS_ITS | Clinical Summary ---
Author Organization [place] Address [address] [place] [address] Care Team Providers Care Counseling Services Manager Name Role Phone Homer Elliott MD Unavailable [phone] No Ref-Primary, Physician Primary Care Provider Allergies Active Allergy Reactions Criticality Noted Date Comments Cefaclor Monohydrate 01/13/2012 Ketamine 12/28/2017 Hallucinations and combative Pseudoephedrine 07/20/2017 Medications cycloSPORINE (RESTASIS) 0.05 % ophthalmic emulsion Place 1 drop into both eyes daily. 12/11/2011 Active VITAMIN B COMPLEX-C PO Take 1 tablet by mouth daily. 04/11/2012 Active Cholecalciferol (VITAMIN D) 2000 UNITS tablet Take 1 tablet by mouth daily. 04/11/2012 Active fluticasone (FLONASE) 50 MCG/ACT nasal sprayIndication s:Chronic rhinitis Freeman 2 sprays into both nostrils daily. 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 Pseudophakia of right eye 01/13/2012 Status post LASIK surgery 01/13/2012 Family History Medical History Relation Comments Eye Disorder Father lost peripheral vision Gastrointestinal Disease No family hx of Relation Status Comments Father Social History Tobacco Use Types Packs/Day Years Used Date Smoking Tobacco: Every Day Cigarettes 0.4 37 Smokeless Tobacco: Never Alcohol Use Standard Drinks/Week Comments Yes 11.7 (1 standard drink = 0.6 oz pure alcohol) wine Comments No Sex and Gender Information Value Date Recorded Sex Assigned at Not on file Legal Sex Female 3:10 AM BILINGUAL SALES REPRESENTATIVE Gender Identity Not on file Sexual Orientation Not on file Last Filed Vital Signs Vital Sign Reading Time Taken Comments Blood Pressure 123/82 12/28/2017 8:00 AM CDT Pulse 92 07/21/2017 9:19 AM CDT Temperature 37.2 C (98.9 F) 12/28/2017 6:24 AM CDT Respiratory Rate 16 12/28/2017 8:00 AM CDT Oxygen Saturation 97% 12/28/2017 8:00 AM CDT Inhaled Oxygen Concentration - - Weight 63 kg (139 lb) 12/28/2017 6:24 AM CDT Height 171.5 cm (5' 7.5) 12/28/2017 6:24 AM CDT Body Mass Index 21.45 12/28/2017 6:24 AM CDT Plan of Treatment Not on file Insurance [facility] MEDICARE [facility] BLUE Care Teams Counseling Services Manager Relationship Specialty Start Date End Date Homer Elliott MD [facility] [address] [facility] [address] [place] [address] PCP - Ophthalmology Ophthalmology 01/18/12 No Ref-Primary, Physician PCP - General 07/21/17
--- OUTSIDE RECORDS SUMMARY | 2024-10-03 00:37 | XMS_ITS | Encounter Summary ---
Author Organization [facility] Address [address] [place] [address] Care Team Providers Care Shipper Receiver Name Role Phone Darlene Fitzgerald M.D. Primary Care Pro vider Encounter Details Date Type Department Care Team (Late st Contact Info) Description 08/07/2010 Historical Ophthalmology RST OPH Guicho Pires M.D. [address] [place] [address] Social History Tobacco Use Types Packs/Day Years Used Date Smoking Tobacco: Never Assessed Comments Unknown Sex and Gender Information Value Date Recorded Sex Assigned at Female 03/08/2023 5:54 PM PODIATRIST ORTHOPEDIC Legal Sex Female 2:46 PM PODIATRIST ORTHOPEDIC Gender Identity Female 02/14/2017 3:19 PM PODIATRIST ORTHOPEDIC Sexual Orientation Straight 02/10/2020 7: 14 AM PODIATRIST ORTHOPEDIC documented as of this encounter Progress Notes * Guicho Pires M.D. - 08/07/2010 7:25 AM CDT Eye General CHIEF COMPLAINT Cataract evaluation both eyes HISTORY OF PRESENT ILLNESS Blurred vision; both eyes; x 2 years; constantly; symptoms occur primarily when driving. Floater right eye;4 yrs;constant. Denies flashes at this time. Denies diplopia. Patient denies ocular pain. Patient is interested in cataract surgery at [place] IMPRESSION / REPORT / PLAN #1 history ou lasik stable. Note has multiple treatments which were complicated by need for multiple enhancements botheyes. #2 cataracts visually significant. RBA RIGHT cataract surgery disucssed, pt wishes to consider and call. get iols, target plano. NOTE previous LASIK. Outside LASIK records scanned in today. #3 dry eyes art tears prn DIAGNOSIS #1 history ou lasik #2 cataracts #3 dry eyes CDM Reports - EYEGEN Id: [id number] Status: Fnl documented in this encounter Plan of Treatment Not on file documented as of this encounter Visit Diagnoses Not on filedocumented in this encounter Care Teams Shipper Receiver Relationship Specialty Start Date End Date Tristan Darlene Neri M.D. [address] [phone] PCP - General Family Medicine 01/11/19 documented as of this encounter
--- OUTSIDE RECORDS SUMMARY | 2024-10-03 00:37 | XMS_ITS | Encounter Summary ---
Author Organization [facility] Address [address] [place] [address] Care Team Providers Care Aircraft Accessories Mechanic Name Role Phone Darlene Fitzgerald M.D. Primary Care Pro vider Encounter Details Date Type Department Care Team (Late st Contact Info) Description 10/19/2010 Historical Ophthalmology RST OPH Guicho Pires M.D. [address] [place] [address] Social History Tobacco Use Types Packs/Day Years Used Date Smoking Tobacco: Never Assessed Comments Unknown Sex and Gender Information Value Date Recorded Sex Assigned at Female 03/08/2023 5:54 PM CAPTAIN AIRLINE PILOT Legal Sex Female 2:46 PM CAPTAIN AIRLINE PILOT Gender Identity Female 02/14/2017 3:19 PM CAPTAIN AIRLINE PILOT Sexual Orientation Straight 02/10/2020 7: 14 AM CAPTAIN AIRLINE PILOT documented as of this encounter Progress Notes * Guicho Pires M.D. - 10/19/2010 9:58 AM CDT Eye General CHIEF COMPLAINT Patient returns to be listed for surgery HISTORY OF PRESENT ILLNESS Patient is here to get set up for Cataract surgery. No new complaints vision seems the same as whenshe was here in July. Floaters remain unchanged. Denies flashes. Denies diplopia. IMPRESSION / REPORT / PLAN #1 history laisk no rx #2 cataracts visually significant. RBA RIGHT cataract surgery disucssed, pt wishes to proceed. get iols and corneal topography, target plano. note lasik records scanned in. note increae DIAGNOSIS #1 history laisk #2 cataracts CDM Reports - EYEGEN Id: [id number] Status: Fnl documented in this encounter Plan of Treatment Not on file documented as of this encounter Visit Diagnoses Not on filedocumented in this encounter Care Teams Aircraft Accessories Mechanic Relationship Specialty Start Date End Date Darlene Fitzgerald M.D. [address] [phone] PCP - General Family Medicine 01/11/19 documented as of this encounter
== END 2024-10-02 13:46 | disposition home or self-care (01) ==
LOC: CT 13:46
PROVIDERS: PCP Family Medicine; Visit Provider Family Medicine
DX: Z12.2 Encounter for screening for malignant neoplasm of respiratory organs (principal); F17.210 Nicotine dependence, cigarettes, uncomplicated; M54.16 Radiculopathy, lumbar region; Z51.89 Encounter for other specified aftercare
CPT/HCPCS: 71271

== ENCOUNTER 2024-11-06 13:45 | Outpatient (RCR) | payer MEDICARE, BC, SELFPAY ==
--- NOTE | 2024-09-25 14:14 | PT.OPEX ---
PT [place] [facility] Eval PT [facility] Outpatient Eval Start: 09/25/24 08:35 Freq: Status: Active Protocol: Document 09/25/24 08:35 TAPANSamia (Rec: 09/25/24 14:10 KLV [id number]) E-signed By Carly White PT Physical Therapy Outpatient Evaluation Insurance Information Recert Due Date 12/20/24 Insurance Name Medicare B,Blue Cross/Blue Shield Medical Diagnosis Lumbar radiculopathy Treating Diagnosis Left leg pain, limited lumbar ROM, muscle weakness, dural tension, left buttock pain Imaging Report MRI 06/22/24: Information L5-S1, severe left L5 impingement and mild right L5 encroachment. 7 mm AP left foraminal disc extrusion L2-3 mild left subarticular recess stenosis with a 7 mm AP left dorsolateral disc protrusion Mild spondylosis throughout remainder of lumbar spine without stenosis Compared to 01/26/23 MRI L5-S1 left foraminal disc herniation is new Referring MD Hernandez Subjective Subjective Karin reports L leg pain has been ongoing for years. She underwent a foraminotomy in 03/2023 which helped to resolve the pain for a couple of weeks however gradually returned. It was recommended at that time to undergo a lumbar fusion however she did not wish to proceed with another surgery. She has had 2 steroid injections. Most recently she underwent L L5-S1 transforaminal epidural steroid injection on 06/22/24. The epidural did help however pain always returns. She notes significant weakness in the left leg. No instances of giving way or falling but difficult to walk>1.5 miles or A/D stairs. Also feels a considerable amount of pain in her left buttock (not much pain in low back itself). She is reluctant to continue with more steroid injections at this time and would like to try conservative management. She would like to get back to walking, standing comfortably for long periods at taoism, gardening, and sleeping well throughout the night. Secondarily reports R knee pain possibly d/t compensating for left leg pain. Pain with kneeling on right knee and weakness noted as well. She reports x- ray of R knee indicating good joint space however may have patellar tendinosis. She has also had x-ray of left hip which was unremarkable. 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 Other/Pertinent Lumbar ROM: Objective -Flx: mid rojas, pain with repeated flexion -Ext: 100%, symptom relieving -R Rot: 100% -L Rot: 75% pinch on L -R Sidebend: 100% -L Sidebend: 50% pinch on L SLR: + dural tension L, - R Heel walking: slight foot drop on L Toe walking: unable to bear full weight on L Hip ROM: -R WNL -L WNL except 30 deg ER with pull and pain into L buttock No TTP lumbar spine Increased tone L lumbar paraspinals Posture: seated posterior pelvic tilt, thoracic kyphosis Supine: level iliac crest and medial malleolus, posterior rotated L innominate Stork test: unable to assess d/t pain with L LE WB Functional Test Oswestry: 23, 46% Performed & Score Assessment Assessment/ Patient is a 74 year old female presenting to physical Impression therapy for evaluation and treatment of left buttock and leg pain with MRI indicating L5-S1 nerve root impingement. Patient presents with limited lumbar mobility, dural tension L LE, limited hip ROM/tension in piriformis with lumbar extension based preference. 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 Patient appears motivated to participate in PT and presents with good prognosis to improve mobility, strength, proprioception and return to functional activities with skilled physical therapy intervention. Plan of Care Rehabilitation Good Potential Physical Therapy In 5 visits: Goals Patient will demonstrate full lumbar AROM with 0/10 pain in all directions in order to demonstrate improved functional mobility. 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 Patient will report 50-75% improvement in radicular symptoms to demonstrate functional improvement Patient will be able to walk for at least 2 miles with <2/10 pain Treatment Plan/ Dry Needling,Gait Training,Ice/Cold/Vasopneumatic,Joint Direct Interventions Mobilization,Manual Therapy,Neuromuscular Re-ed,Self- Care/Home Management,Therapeutic Activities,Therapeutic Exercises Frequency/Duration 1x/wk for 6 weeks with additional 2-4 sessions prn based on progress Patient Will Be Completion of LTG(s),Independent w/HEP,Independently Discharged From Progressing Therapy Evaluation Billing Untimed Code 20 Treatment Minutes Complexity Low Certification Information Initial 09/25/24 Certification Date Ending Certification 12/20/24 Date Provider Signature Yes Required Provider Signature POC & Medical Necessity Shows Agreement With Physician NPI Number Write NPI# Here Physician Comment/ : Change Physician Signature Please Sign/Date Here & Date Requested
== END 2025-01-08 14:27 | disposition home or self-care (01) ==
PROVIDERS: PCP Family Medicine; Visit Provider Family Medicine
DX: M54.16 Radiculopathy, lumbar region (principal); M79.18 Myalgia, other site; M79.605 Pain in left leg; Z51.89 Encounter for other specified aftercare
CPT/HCPCS: 97110; 97140; 97161

== ENCOUNTER 2025-04-10 12:26 | Outpatient (CLI) | payer MEDICARE, BC, SELFPAY | END 2025-04-10 12:27 | disposition home or self-care (01) | PROVIDERS: PCP Family Medicine; Visit Provider Family Medicine | DX: M54.16 Radiculopathy, lumbar region (principal); Z13.6 Encounter for screening for cardiovascular disorders | CPT/HCPCS: 80048; 80061; 85025; 86141 ==